=== PATIENT | male | born 1960 | race Caucasian/White ===

== ENCOUNTER 2017-12-18 11:16 | Emergency (ER) | payer BC ==
[~2017-12-18] VITALS: Ht 180.3 cm; Wt 86.5 kg
[2017-12-18 11:19] VITALS: TEMP 36.5; Ht 180.3 cm; Wt 86.5 kg
--- NOTE | 2017-12-18 11:38 | EMERGENCY ROOM VISIT NOTE ---
ED Visit Note First contact with patient: 11:25 CHIEF COMPLAINT: Right Ankle pain HISTORY OF PRESENT ILLNESS: This 57-year-old male patient presents to the emergency department via ambulance, approximately 30 minutes after sustaining an injury to the right ankle with a twisting, inversion motion when he tripped over a "half step" and fell forward. The patient complains of pain along the outside of the ankle. The patient denies pain of the foot. The patient rates the pain as sharp and 2/10. The patient is not able to bear weight on the foot. Constant pain, worse with movement, weight bearing, and the dependent position. No knee pain, the patient is able to move their toes. No numbness or weakness of the foot, no laceration. The patient has not had a previous fracture to this ankle. The patient has taken no medications for the pain. The patient denies any other injury. REVIEW OF SYSTEMS: A 6 system review of systems was completed with positives and pertinent negatives listed in the HPI. ALLERGIES: Penicillin MEDICATIONS: None PMH: None SOCIAL HISTORY: The patient is from out of town. He is here locally helping his son move into college. He denies drug, alcohol, tobacco use. PHYSICAL EXAM: Vital Signs: Reviewed Nurse's notes, vital signs stable. GENERAL : This is a 57-year-old white male, no acute distress, but appears in pain, well -developed, well-nourished. MENTAL STATUS: Alert, oriented to person place and time, and cooperative. MUSCULOSKELETAL: The right ankle is swollen and tender over the lateral malleolus, but the skin is intact and there is no ligamentous instability. There is no fifth metatarsal tenderness. There is no tenderness over the rest of the foot. There is no calf or tibia/fibular tenderness. There is no visual deformity. The foot and toes are warm and well-perfused. Dorsalis pedis pulse 2+. Sensation to pain and light touch is intact. Capillary refill less than 2 seconds. RADIOLOGY: R ANKLE MIN 3 VIEWS ROUTINE CLINICAL HISTORY: Right ankle pain. COMPARISON: None FINDINGS: Note is made of a minimally distracted transverse fracture of the fibular tip. No ankle mortise widening is noted. There is no acute fracture the distal right tibia. There is moderate lateral ankle soft tissue swelling. Incidental note is made of an os trigonum. IMPRESSION: Acute minimally distracted transverse fracture of the fibular tip. Electronically signed by: Eduin Sal M.D. 12/18/2017 12:28 PM Dictated Date/Time: 12/18/2017 12:26 PM EMERGENCY DEPARTMENT COURSE: I examined the patient. He was offered analgesics and declines. X-rays of the right ankle were reviewed by myself and read by radiology and reveal acute minimally distracted transverse fracture of the fibular tip. I discussed findings with the patient and offered him options including Ortho-Glass versus a supportive gel ankle splint. The patient states he is from [place] and is planning to drive home today, so requests the gel splint. I discussed with him the benefits versus risks associated with both. The patient felt comfortable with the gel splint and states he will wear supportive footwear in addition. A gel ankle splint was applied to the ankle under my direction and the position was satisfactory. Neurovascular status was rechecked and intact. The patient was instructed on the use of crutches. The patient did request some Tylenol prior to discharge. He was given 1 g p.o. Tylenol. Discharge instructions reviewed. The patient was provided with a disc of x-rays to take home with him to the local orthopedic surgeon in [place]. The patient was discharged home in good condition. PDMP consulted. No suspicious findings noted. I attest that I have personally reviewed the patient's current medication list. Patient was found to have normal blood pressure on screening and does not require follow-up. Etiologies such as soft tissue injury, fracture, dislocation, neurovascular compromise, compartment syndrome, as well as others were entertained. DIAGNOSIS: Distal right fibula fracture The chart was completed utilizing [employer] Speech voice recognition software. Grammatical errors, random word insertions, pronoun errors, and incomplete sentences are an occasional consequence of this system due to software limitations, ambient noise, and hardware issues. Any formal questions or concerns about the content, text, or information contained within the body of this dictation should be directly addressed to the provider for clarification. Current/Historical Medications Scheduled PRN Oxycodone Ir (Roxicodone Ir), 1 TAB PO Q4H PRN for Pain Allergies Coded Allergies: Penicillins (Verified Allergy, Unknown, OCCURRED IN CHILDHOOD, 12/18/17) Vital Signs Date Time Temp Pulse Resp B/P (MAP) Pulse Ox O2 Delivery O2 Flow Rate FiO2 12/18/17 13:36 68 20 146/96 98 12/18/17 11:19 36.5 60 18 158/90 98 Room Air Medications Administered Medications (Trade) Dose Ordered Sig/Lise Route Start Time Stop Time Status Last Admin Dose Admin Acetaminophen (Tylenol Tab) 1,000 mg NOW STAT PO 12/18/17 13:27 12/18/17 13:28 DC 12/18/17 13:36 1,000 MG Departure Information Impression Primary Impression: Fracture of distal end of right fibula Dispostion Home / Self-Care Condition GOOD Prescriptions Oxycodone Ir (Roxicodone Ir) 5 Mg Tab 1 TAB PO Q4H Y for Pain, #12 TAB For Initial Treatment Prov: Fanta Alvarez PA-C 12/18/17 Referrals No Doctor, Assigned (PCP) Patient Instructions ED Fx Ankle Lateral Malleolus, [facility] Additional Instructions You have been treated in the Emergency Department for a distal fibula fracture. You have been prescribed OxyIR to be used for pain control. This is a narcotic medication. You cannot drive or consume alcohol while on this medicine. This medicine should only be used for pain that cannot be controlled with over-the- counter pain medicines. For pain control, you can use the following [id number] medicines (if >12 yo): Ibuprofen(Motrin, Advil) may be used for fever or pain. Use 600mg every six hours as needed. Take with food. Avoid using more than 2400mg in a 24 hour period. Do not use 2400mg per day for more than three consecutive days without physician direction. Prolonged inappropriate use can lead to stomach upset or ulcers. (AND/OR) Acetaminophen(Tylenol) may be used for fever or pain. Use 1000mg every six hours as needed. Avoid using more than 3000mg in a 24 hour period. If this is a recent injury (<24 hrs), ice can be applied to the area of pain for the first 3 days to help decrease pain and inflammation. Contact your local orthopedic surgeon as soon as possible to establish a follow- up visit from today's Emergency Department visit. Keep the ankle brace/splint in place until cleared by Orthopedics. Use the crutches you have been provided to keep ALL weight off of the ankle until weight bearing is tolerable. Return to the Emergency Department if your current symptoms worsen despite treatment course outlined above, or if you develop any of the following symptoms : intractable pain despite aforementioned treatment course or new onset of numbness or tingling of the foot. Problem Qualifiers Primary Impression: Fracture of distal end of right fibula Encounter type: initial encounter Fracture type: closed Fracture morphology : other fracture Qualified Codes: S82.831A - Other fracture of upper and lower end of right fibula, initial encounter for closed fracture
--- NOTE | 2017-12-18 12:29 | DIAGNOSTIC IMAGING REPORT ---
R ANKLE MIN 3 VIEWS ROUTINE CLINICAL HISTORY: Right ankle pain. COMPARISON: None FINDINGS: Note is made of a minimally distracted transverse fracture of the fibular tip. No ankle mortise widening is noted. There is no acute fracture the distal right tibia. There is moderate lateral ankle soft tissue swelling. Incidental note is made of an os trigonum. IMPRESSION: Acute minimally distracted transverse fracture of the fibular tip. Electronically signed by: Eduin Sal M.D. 12/18/2017 12:28 PM Dictated Date/Time: 12/18/2017 12:26 PM
[2017-12-18] MEDS ORDERED: OXYC-90 PO (13:15)
[2017-12-18] MEDS ORDERED: ACETAMINOPHEN 500 MG TAB PO STA (13:27)
[2017-12-18 13:36] VITALS: BP 146/96; PULSE 68; O2SAT 98
== END 2017-12-18 13:36 | disposition home or self-care (01) ==
LOC: C.EDD 11:19
DX: S82.831A Other fracture of upper and lower end of right fibula, initial encounter for closed fracture (principal); X50.9XXA Other and unspecified overexertion or strenuous movements or postures, initial encounter; Z88.0 Allergy status to penicillin